=== PATIENT | male | born 1935 | race African-American/Black ===

== ENCOUNTER 2017-11-25 19:01 | Emergency (ER) | payer MEDICARE, MEDICAID, SELFPAY ==
[2017-11-25 19:02] VITALS: BP 133/74; PULSE 66; RESP 16; O2SAT 95; BMI 22.8
--- NOTE | 2017-11-25 19:08 | CT_ITS ---
CT head/brain wo con HISTORY: ITS.REASON: SLURRED SPEECH ORDERING PHYSICIAN: Hitesh Marcelino MD PATIENT AGE: 82 years COMPARISON: None TECHNIQUE: Axial images obtained without contrast. Brain and bone windows reviewed. FINDINGS: No midline shift, mass effect, intracranial hemorrhage, hydrocephalus, or extra-axial fluid collection is evident. There is generalized atrophy with periventricular and subcortical ischemic gliotic change from microvascular disease. There is no lacunar infarction in the right basal ganglia The calvarium has an unremarkable appearance. No mastoid effusion. Mild mucosal thickening ethmoid sinuses... IMPRESSION: 1. No acute intracranial findings. 2. Atrophy with chronic ischemic gliotic change. 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 3. There is no evidence of intracranial hemorrhage, focal mass, or acute territorial infarction. A negative CT does not exclude an acute CVA. A follow-up head CT or MRI is recommended if neurological symptoms persist
[2017-11-25 19:39] LABS: Basophils % 0.3 % (0.1-2.0); Eosinophils # 0.2 K/mm3 (0.0-0.4); Eosinophils % 2.9 % (0.1-12.0); Hematocrit 36.4 % (42.0-52.0); Hemoglobin 11.2 g/dL (14.1-18.0); Lymphocytes # 1.1 K/mm3 (0.7-4.5); Lymphocytes % 19.4 K/mm3 (10-50); Mean Corpuscular HGB Conc 30.9 g/dL (31.8-35.4); Mean Corpuscular Volume 93.9 fl (80-94); Mean Platelet Volume 9.6 fl (7.4-10.4); Monocytes # 0.4 K/mm3 (0.1-1.0); Monocytes % 6.9 % (1.7-9.3); Neutrophils # 4.1 K/mm3 (1.8-7.8); Neutrophils % 70.5 % (37.0-80.0); Platelet Count 199 K/mm3 (142-424); Red Blood Count 3.88 M/mm3 (4.60-6.20); Red Cell Distribution Width 16.3 % (11.5-17.5); White Blood Count 5.9 K/mm3 (4.8-10.8)
[2017-11-25 19:42] VITALS: TEMP 37.1
[2017-11-25 20:00] LABS: Lactic Acid 1.5 mmol/L (0.4-2.0)
[2017-11-25 20:14] LABS: Alanine Aminotransferase 34 U/L (12-78); Albumin Level 3.2 gm/dL (3.4-5.0); Albumin/Globulin Ratio 0.6 (1.1-1.8); Alkaline Phosphatase 130 U/L (46-116); Anion Gap 11.5 mEq/L (5-15); Aspartate Amino Transferase 12 U/L (15-37); Bilirubin,Total 0.2 mg/dL (0.2-1.0); Blood Urea Nitrogen 30 mg/dL (7-18); CKMB Relative Index 1.1 U/L (0-4.0); Calcium 9.9 mg/dL (8.5-10.1); Carbon Dioxide 32 mmol/L (21.0-32.0); Chloride 105 mmol/L (98-107); Creatine Kinase 45 U/L (39-308); Creatine Kinase MB 0.5 mg/ml (0.0-3.6); Creatinine Clearance Estimated 34 mL/min (0-300); Creatinine,Serum 1.98 mg/dL (0.70-1.30); Estimated Glomerular Filt Rate 33 ml/min (>60); GFR (African American) 39 ML/MIN (>60); Globulin 5.7 gm/dl (1.3-3.2); Glucose 173 mg/dL (74-106); Potassium 4.5 mmoL/L (3.5-5.1); Sodium 144 mmol/L (136-145); Total Protein,Serum 8.9 gm/dL (6.4-8.2); Troponin I < 0.02 ng/ml (0.00-0.06)
[2017-11-25 21:20] LABS: Microscopic, Urine URINE MICROSCOPIC (MICROSCOPIC)
--- NOTE | 2017-11-25 21:24 | HMH.EDAMS ---
ED Disposition Clinical Impression: Renal insufficiency UTI (urinary tract infection) Qualifiers: Urinary tract infection type: site unspecified Hematuria presence: without hematuria Qualified Code(s): N39.0 - Urinary tract infection, site not specified Disposition: Home, Self-Care Condition on Discharge: Good Instructions: DI for Urinary Tract Infection (UTI) Additional Instructions: call pcp in am to consider continued iv abx Referrals: Xiang Nguyen [Primary Care Provider] - - Critical Care Critical Care Time: No Attestation: On 11/25/17, the high probability of a clinically significant, sudden or life threatening deterioration of the following system(s) required my full and direct attention, intervention and personal management. The time I documented below is in addition to time spent performing reported procedures but includes the following listed in this critical care notation. Medical Decision Making - Medical Records Medical records reviewed: Yes: I reviewed the patient's medical records. Vital Signs: 11/25/17 19:02 11/25/17 19:42 Temperature 98.7 F Temperature Source Rectal Pulse Rate [Right Brachial] 66 Respiratory Rate 16 Blood Pressure [Right Arm] 133/74 Blood Pressure Mean [Right Arm] 93 Blood Pressure Source [Right Arm] Automatic Cuff Blood Pressure Position [Right Arm] Sitting 02 Sat by Pulse Oximetry 95 Oxygen Delivery Method Room Air - Lab Data Lab results reviewed: Yes: I reviewed the patient's lab results. Lab Results 11/25/17 19:28: WBC 5.9, RBC 3.88 L, Hgb 11.2 L, Hct 36.4 L, MCV 93.9, MCH 29.0, MCHC 30.9 L, RDW 16.3, Plt Count 199, MPV 9.6, Neut % (Auto) 70.5, Lymph % (Auto) 19.4, [place] % (Auto) 6.9, Eos % (Auto) 2.9, Baso % (Auto) 0.3, Neut # (Auto) 4.1, Lymph # (Auto) 1.1, [place] # (Auto) 0.4, Eos # (Auto) 0.2, Baso # (Auto) 0.0 11/25/17 19:28: Sodium 144, Potassium 4.5, Chloride 105, Carbon Dioxide 32, Anion Gap 11.5, BUN 30 H, Creatinine 1.98 H, Estimated Creat Clear 34, Estimated GFR 33 L, Est GFR ( Amer) 39 L, Glucose 173 H, Calcium 9.9, Total Bilirubin 0.2, AST 12 L, ALT 34, Alkaline Phosphatase 130 H, Total Creatine Kinase 45, CK-MB (CK-2) 0.5, CK-MB (CK-2) Rel Index 1.1, Troponin I < 0.02, Total Protein 8.9 H, Albumin 3.2 L, Globulin 5.7 H, Albumin/Globulin Ratio 0.6 L 11/25/17 19:28: Lactic Acid 1.5 11/25/17 21:16: Urine Color Yellow, Urine Appearance Sl cloudy, Urine pH 5.5, Ur Specific [place] 1.025, Urine Protein Trace, Urine Glucose (UA) Negative, Urine Ketones Negative, Urine Blood Negative, Urine Nitrate Negative, Urine Bilirubin Negative, Urine Urobilinogen 0.2, Ur Leukocyte Esterase 2+ A, Urine WBC 50-100 Result diagrams: 11/25/17 19:28 11/25/17 19:28 Orders (Tests/Meds): ED MEDICATIONS Generic Name Dose Route Start Last Admin Trade Name Lenoq PRN Reason Stop Dose Admin Ceftriaxone Sodium 1 gm/ 50 mls @ 100 mls/hr 11/25/17 21:27 11/25/17 21:35 Sodium Chloride IV 11/25/17 21:56 100 mls/hr ONCE ONE Administration ORDERS Category Date Time Status Blood Culture Stat Micro 11/25/17 19:34 Received Urine Culture Stat Micro 11/25/17 21:16 Received - CT Data CT Scan: Head Time Received: 22:[address] Reviewed: Yes: I have viewed the radiologist's interpretation Preliminary Findings: Abnormal (chronic changes ) - Tre Inquiry Pt receiving controlled substance: No Altered Mental Status HPI - General Chief Complaint: Altered Mental Status Stated Complaint: altered Time Seen by Provider: 11/25/17 21:24 Mode of Arrival: EMS Source of Information: Patient, EMS, Medical Record Limitations: No Limitations Description of Symptoms (Recalled from ER Triage Doc. by RN): SLURRED SPEECH, STARTED TAKING CIPRO FOR UTI YESTERDAY - History of Present Illness HPI narrative: pt from [facility] with recent uti and on abx - pt with change in mental status - and sent in for evmelvi PALOMARES complaint: altered mental status Onset (ago): day(s)
[2017-11-25 21:46] LABS: Appearance,Urine SL CLOUDY (Clear); Bilirubin,Urine Negative (Negative); Blood, Urine Negative (Negative); Color,Urine YELLOW (Yellow); Glucose,Urine (UA) Negative (Negative); Ketones,Urine Negative (Negative); Leukocyte Esterase,Urine 2+ (Negative); Nitrate,Urine Negative (Negative); PH,Urine 5.5 (5.0-8.5); Protein,Urine TRACE (Negative); Specific Gravity, Urine 1.025 (1.005-1.030); Urobilinogen,Urine 0.2 EU/dl (0.2)
[2017-11-25 21:48] LABS: WBC,Urine 50-100 #/hpf (0-3)
[2017-11-25 23:12] VITALS: BP 141/73; PULSE 62; RESP 16; TEMP 37; O2SAT 95
== END 2017-11-25 23:14 | disposition home or self-care (01) ==
PROVIDERS: Emergency Provider Emergency Medicine; PCP Internal Medicine
DX: N39.0 Urinary tract infection, site not specified (principal); N28.9 Disorder of kidney and ureter, unspecified; F41.9 Anxiety disorder, unspecified; J45.909 Unspecified asthma, uncomplicated; J44.9 Chronic obstructive pulmonary disease, unspecified; I50.9 Heart failure, unspecified; M81.0 Age-related osteoporosis without current pathological fracture; Z79.899 Other long term (current) drug therapy
CPT/HCPCS: 70450; 80053; 81001; 82550; 82553; 83605; 84484; 85025; 87040; 87086; 96365; 99284

== ENCOUNTER 2017-12-05 15:45 | Emergency (ER) | payer MEDICARE, MEDICAID, SELFPAY ==
[2017-12-05 15:46] VITALS: BP 114/67; PULSE 79; RESP 20; TEMP 36.9; O2SAT 97; BMI 25.0
--- NOTE | 2017-12-05 16:11 | CT_ITS ---
CT head/brain wo con HISTORY: confusion, dizziness, altered mental status, altered level of consciousness ITS.REASON: CONFUSION ORDERING PHYSICIAN: Ochoa Petit MD PATIENT AGE: 82 years COMPARISON: To 1118 TECHNIQUE: Axial images obtained without contrast. Brain and bone windows reviewed. FINDINGS: No midline shift, mass effect, intracranial hemorrhage, hydrocephalus, or extra-axial fluid collection is evident. There is atrophy with chronic periventricular ischemic gliotic changes The calvarium has an unremarkable appearance. No mastoid effusion. No sinus air-fluid levels.. IMPRESSION: 1. No acute intracranial finding with no significant change. 2. Atrophy with chronic ischemic gliotic changes
--- NOTE | 2017-12-05 16:16 | XR_ITS ---
XR chest portable HISTORY: Confusion and dizziness ITS.REASON: AMS ORDERING PHYSICIAN: Ochoa Petit MD PATIENT AGE: 82 years COMPARISON: None available FINDINGS: Unremarkable cardiovascular structures. There are low lung volumes. There is increased density in the right mid and lower lung zone consistent with right-sided pneumonia. There is elevated left hemidiaphragm with vascular crowding in the left lung base. There are severe degenerative changes in the shoulders right more so than left. IMPRESSION: Right lower lobe pneumonia
[2017-12-05 16:37] LABS: Basophils # 0.1 K/mm3 (0-0.2); Basophils % 0.7 % (0.1-2.0); Eosinophils # 0.1 K/mm3 (0.0-0.4); Hematocrit 35.5 % (42.0-52.0); Hemoglobin 11.3 g/dL (14.1-18.0); Lymphocytes # 1.4 K/mm3 (0.7-4.5); Lymphocytes % 19.9 K/mm3 (10-50); Mean Corpuscular HGB Conc 31.7 g/dL (31.8-35.4); Mean Corpuscular Hemoglobin 29.9 pg (27.0-31.2); Mean Corpuscular Volume 94.1 fl (80-94); Mean Platelet Volume 9.6 fl (7.4-10.4); Monocytes # 0.5 K/mm3 (0.1-1.0); Monocytes % 7.1 % (1.7-9.3); Neutrophils # 4.9 K/mm3 (1.8-7.8); Neutrophils % 71.3 % (37.0-80.0); Platelet Count 223 K/mm3 (142-424); Red Blood Count 3.78 M/mm3 (4.60-6.20); Red Cell Distribution Width 16.1 % (11.5-17.5); White Blood Count 6.8 K/mm3 (4.8-10.8)
[2017-12-05 16:46] LABS: Alanine Aminotransferase 70 U/L (12-78); Albumin Level 3.2 gm/dL (3.4-5.0); Albumin/Globulin Ratio 0.6 (1.1-1.8); Alkaline Phosphatase 140 U/L (46-116); Anion Gap 13.1 mEq/L (5-15); Aspartate Amino Transferase 39 U/L (15-37); Bilirubin,Total 0.2 mg/dL (0.2-1.0); Blood Urea Nitrogen 33 mg/dL (7-18); Calcium 9.5 mg/dL (8.5-10.1); Carbon Dioxide 29 mmol/L (21.0-32.0); Chloride 105 mmol/L (98-107); Creatinine Clearance Estimated 32 mL/min (0-300); Creatinine,Serum 2.13 mg/dL (0.70-1.30); Estimated Glomerular Filt Rate 30 ml/min (>60); GFR (African American) 36 ML/MIN (>60); Globulin 5.6 gm/dl (1.3-3.2); Glucose 156 mg/dL (74-106); Potassium 4.1 mmoL/L (3.5-5.1); Sodium 143 mmol/L (136-145); Total Protein,Serum 8.8 gm/dL (6.4-8.2)
[2017-12-05 17:36] LABS: Microscopic, Urine URINE MICROSCOPIC (MICROSCOPIC)
[2017-12-05 17:39] LABS: Appearance,Urine CLEAR (Clear); Bilirubin,Urine Negative (Negative); Blood, Urine Negative (Negative); Color,Urine YELLOW (Yellow); Glucose,Urine (UA) Negative (Negative); Ketones,Urine Negative (Negative); Leukocyte Esterase,Urine 2+ (Negative); Nitrate,Urine Negative (Negative); Protein,Urine TRACE (Negative); Specific Gravity, Urine 1.015 (1.005-1.030); Urobilinogen,Urine 0.2 EU/dl (0.2)
[2017-12-05 17:57] LABS: Bacteria,Urine 1+ /lpf
--- NOTE | 2017-12-05 18:20 | HMH.EDGENADL ---
ED Disposition Clinical Impression: Dizziness, Mental status change resolved Pneumonia Qualifiers: Pneumonia type: due to unspecified organism Laterality: right Lung location: lower lobe of lung Qualified Code(s): J18.1 - Lobar pneumonia, unspecified organism Disposition: Xfer SNF Condition on Discharge: Good Instructions: DI for Pneumonia -- Adult, DI for Dizziness-Nonvertigo Additional Instructions: Additional instructions for PNEUMONIA: See your physician as soon as possible for further evaluation. Return immediately if you have an uncontrollable fever greater than 102 degrees, difficulty breathing or shortness of breath, persistent vomiting, or severe chest pain. Prescriptions: levoFLOXacin [Levaquin 500mg tab] 500 mg PO DAILY #10 tab Referrals: Xiang Nguyen [Primary Care Provider] - - Critical Care Critical Care Time: No Attestation: On 12/05/17, the high probability of a clinically significant, sudden or life threatening deterioration of the following system(s) required my full and direct attention, intervention and personal management. The time I documented below is in addition to time spent performing reported procedures but includes the following listed in this critical care notation. Medical Decision Making - Medical Records Medical records reviewed: Yes: I reviewed the patient's medical records. Vital Signs: 12/05/17 15:46 Temperature 98.5 F Temperature Source Oral Pulse Rate [Right Radial] 79 Respiratory Rate 20 Blood Pressure [Right Arm] 114/67 Blood Pressure Mean [Right Arm] 82 Blood Pressure Source [Right Arm] Automatic Cuff Blood Pressure Position [Right Arm] Supine 02 Sat by Pulse Oximetry 97 Oxygen Delivery Method Room Air - Lab Data Lab Results 12/05/17 16:00: WBC 6.8, RBC 3.78 L, Hgb 11.3 L, Hct 35.5 L, MCV 94.1 H, MCH 29.9, MCHC 31.7 L, RDW 16.1, Plt Count 223, MPV 9.6, Neut % (Auto) 71.3, Lymph % (Auto) 19.9, [place] % (Auto) 7.1, Eos % (Auto) 1.0, Baso % (Auto) 0.7, Neut # (Auto) 4.9, Lymph # (Auto) 1.4, [place] # (Auto) 0.5, Eos # (Auto) 0.1, Baso # (Auto) 0.1 12/05/17 16:00: Sodium 143, Potassium 4.1, Chloride 105, Carbon Dioxide 29, Anion Gap 13.1, BUN 33 H, Creatinine 2.13 H, Estimated Creat Clear 32, Estimated GFR 30 L, Est GFR ( Amer) 36 L, Glucose 156 H, Calcium 9.5, Total Bilirubin 0.2, AST 39 H, ALT 70, Alkaline Phosphatase 140 H, Total Protein 8.8 H, Albumin 3.2 L, Globulin 5.6 H, Albumin/Globulin Ratio 0.6 L 12/05/17 17:15: Urine Color Yellow, Urine Appearance Clear, Urine pH 6.0, Ur Specific [place] 1.015, Urine Protein Trace, Urine Glucose (UA) Negative, Urine Ketones Negative, Urine Blood Negative, Urine Nitrate Negative, Urine Bilirubin Negative, Urine Urobilinogen 0.2, Ur Leukocyte Esterase 2+ A, Urine RBC None, Urine WBC 5-10, Ur Squamous Epith Cells None, Urine Bacteria 1+ Result diagrams: 12/05/17 16:00 12/05/17 16:00 Orders (Tests/Meds): ED MEDICATIONS Discontinued Medications Generic Name Dose Route Start Last Admin Trade Name Freq PRN Reason Stop Dose Admin Levofloxacin 500 mg 12/05/17 18:48 Levaquin 500mg Tab PO 12/05/17 18:49 ONCE ONE Protocol ORDERS Category Date Time Status Urine Culture Stat Micro 12/05/17 17:15 Received 12-lead EKG Request [ECG Request by /Jamaal] Stat Y 12/05/17 16:11 Ordered - Radiology Data #1 Image(s): Chest Image Reviewed: Yes I have reviewed radiologist's interpretation Right lower lobe pneumonia - CT Data CT Scan: Head Time Received: 17:[address] Reviewed: Yes: I have viewed the radiologist's interpretation Findings Narrative: No acute intracranial process - Tre Inquiry Pt receiving controlled substance: No Medical Decision Making Narrative: Patient ambulates up and down the adames in the emergency department with no difficulty, steady Etiologies interprets x-ray as possible pneumonia, however the patient's clinical findings are minimal to suggest any
[2017-12-05 20:14] VITALS: BP 149/86; PULSE 70; RESP 18; TEMP 36.4; O2SAT 92
[2017-12-05 20:33] VITALS: BP 149/86; PULSE 79; RESP 16; TEMP 36.4
== END 2017-12-05 20:36 ==
PROVIDERS: Emergency Provider Emergency Medicine; PCP Internal Medicine
DX: J18.1 Lobar pneumonia, unspecified organism (principal); R41.82 Altered mental status, unspecified; I10 Essential (primary) hypertension; F41.9 Anxiety disorder, unspecified; I50.9 Heart failure, unspecified; J45.909 Unspecified asthma, uncomplicated; J44.9 Chronic obstructive pulmonary disease, unspecified; N28.9 Disorder of kidney and ureter, unspecified; Z79.899 Other long term (current) drug therapy
CPT/HCPCS: 70450; 71045; 80053; 81001; 85025; 87086; 93005; 99284